=== PATIENT | female | born 1945 | race African-American/Black ===

== ENCOUNTER 2020-04-04 11:45 | Emergency (ER) | payer MEDICARE, OTHER ==
[~2020-04-04] VITALS: Ht 175.3 cm; Wt 100.0 kg
[~2020-04-04 11:45] MED LIST: IBUP-2070 PO
[2020-04-04 13:46] LABS: ANION GAP 11 mmol/L (8-16); CALCIUM, TOTAL 8.6 mg/dL (8.8-10.5); CARBON DIOXIDE 26 mmol/L (22-29); CHLORIDE 103 mmol/L (98-107); CREATININE 0.95 mg/dL (0.60-1.30); GLOMERULAR FILTR. RATE CALC > 60 mL/min (>60); GLUCOSE,RANDOM 120 mg/dL (70-110); POTASSIUM 3.6 mmol/L (3.5-5.1); SODIUM SERUM 140 mmol/L (136-145); UREA NITROGEN, BLOOD 9 mg/dL (7-18)
[2020-04-04 13:48] LABS: BASOPHILS % (AUTO) 0.5 % (0.0-2.0); EOSINOPHILS % (AUTO) 3.9 % (1.0-6.0); HEMATOCRIT 36.3 % (36-46); HEMOGLOBIN 12.2 g/dL (12.0-16.0); LYMPHOCYTES # (AUTO) 1.7 K/uL (1.0-4.8); LYMPHOCYTES % (AUTO) 23.4 % (22.0-44.0); MEAN CORPUSCULAR HGB CONC 33.6 G/dL (31.0-37.0); MEAN CORPUSCULAR VOLUME 95 fL (80-100); MONOCYTES # (AUTO) 0.6 K/uL (0.1-1.0); MONOCYTES % (AUTO) 8.6 % (2.0-9.0); NEUTROPHILS # (AUTO) 4.6 K/uL (1.8-7.7); NEUTROPHILS % (AUTO) 63.6 % (40.0-70.0); PLATELET COUNT (AUTO) 248 K/uL (150-450); RED BLOOD CELL COUNT(AUTO) 3.81 MIL/uL (4.00-5.20); RED CELL DISTRIBUTION WIDTH 14.7 % (11.5-14.5)
[2020-04-04 13:59] LABS: D-DIMER 0.43 mg/L FEU (0.00-0.50)
[2020-04-04 14:11] LABS: ALANINE AMINOTRANSFERASE 23 U/L (12-78); ALBUMIN 3.2 g/dL (3.4-5.0); ALKALINE PHOSPHATASE 87 U/L (46-116); ASPARTATE AMINOTRANSFERASE 16 U/L (15-37); BILIRUBIN,TOTAL 0.4 mg/dL (0.1-1.0); C-REACTIVE PROTEIN QUANT 1.18 mg/dL (0.00-0.30); CREATINE KINASE, TOTAL ONLY 123 U/L (26-192); FERRITIN 215 ng/mL (8-252); LACTATE DEHYDROGENASE 159 U/L (81-234); TOTAL PROTEIN, SERUM 6.8 g/dL (6.4-8.2)
[2020-04-04 14:14] LABS: LACTIC ACID 3.3 mmol/L (0.4-2.0)
[2020-04-04 14:16] LABS: B-TYPE NATRIURETIC PEPTIDE 65 pg/mL (0-100)
[2020-04-04 14:26] LABS: INFLUENZA TYPE A NEGATIVE FOR TYPE A (NEGATIVE); INFLUENZA TYPE B NEGATIVE FOR TYPE B (NEGATIVE)
[2020-04-04] MEDS ORDERED: SODIUM CHLORIDE 0.9% 1,000 ML IV ONE (14:30)
[2020-04-04 17:37] VITALS: BP 119/57
== END 2020-04-04 18:42 | disposition home or self-care (01) ==
LOC: EMS 11:45
DX: J40 Bronchitis, not specified as acute or chronic (principal); Z20.822 Contact with and (suspected) exposure to COVID-19
CPT/HCPCS: 36415; 71045; 80053; 82550; 82728; 83605; 83615; 83880; 84145; 84484; 85025; 85379; 85384; 85610; 85730; 86140; 87040; 87426; 87804; 93005; 96360; 96361; 99285; U0003

== ENCOUNTER 2022-01-02 13:18 | Emergency (ER) | payer MEDICARE, OTHER ==
[~2022-01-02] VITALS: Ht 162.6 cm; Wt 110.0 kg
[2022-01-02] MEDS ORDERED: ASPI-1444 PO (15:18)
[2022-01-02] MEDS ORDERED: GABA-529 PO (15:18)
[2022-01-02 15:22] VITALS: BP 137/69
[2022-01-02] MEDS ORDERED: NAPR-1197 PO (15:27)
[2022-01-02] MEDS ORDERED: ACET-66 PO (15:27)
[2022-01-02] MEDS ORDERED: SIMV10TA97 PO (15:27)
[2022-01-02] MEDS ORDERED: SODIUM CHLORIDE 0.9% 1,000 ML IV ONE (15:30)
[2022-01-02] MEDS ORDERED: LIDOCAINE 1% 10 ML VIAL PERC ONE (15:30)
[2022-01-02] MEDS ORDERED: IBUPROFEN 600 MG TABLET PO ONE (16:15)
[2022-01-02 16:31] LABS: BASOPHILS % (AUTO) 0.4 % (0.0-2.0); EOSINOPHILS % (AUTO) 2.6 % (1.0-6.0); HEMATOCRIT 39.8 % (36-46); LYMPHOCYTES # (AUTO) 1.8 K/uL (1.0-4.8); LYMPHOCYTES % (AUTO) 22.4 % (22.0-44.0); MEAN CORPUSCULAR HEMOGLOBIN 32.2 pg (26.0-34.0); MEAN CORPUSCULAR HGB CONC 32.7 G/dL (31.0-37.0); MEAN CORPUSCULAR VOLUME 99 fL (80-100); MONOCYTES # (AUTO) 0.7 K/uL (0.1-1.0); MONOCYTES % (AUTO) 8.9 % (2.0-9.0); NEUTROPHILS # (AUTO) 5.4 K/uL (1.8-7.7); NEUTROPHILS % (AUTO) 65.7 % (40.0-70.0); PLATELET COUNT (AUTO) 242 K/uL (150-450); RED BLOOD CELL COUNT(AUTO) 4.03 MIL/uL (4.00-5.20); RED CELL DISTRIBUTION WIDTH 13.5 % (11.5-14.5)
[2022-01-02 16:41] LABS: ANION GAP 10 mmol/L (8-16); CALCIUM, TOTAL 8.8 mg/dL (8.8-10.5); CARBON DIOXIDE 22 mmol/L (22-29); CHLORIDE 104 mmol/L (98-107); GLUCOSE,RANDOM 92 mg/dL (70-110); POTASSIUM 3.8 mmol/L (3.5-5.1); SODIUM SERUM 136 mmol/L (136-145); UREA NITROGEN, BLOOD 10 mg/dL (7-18)
[2022-01-02 16:43] LABS: GLOMERULAR FILTR. RATE CALC > 60 mL/min (>60)
[2022-01-02] MEDS ORDERED: CEPH-558 PO ×2 (16:59→17:30)
== END 2022-01-02 17:48 | disposition home or self-care (01) ==
LOC: EMS 13:21
DX: S62.626A Displaced fracture of middle phalanx of right little finger, initial encounter for closed fracture (principal); S61.216A Laceration without foreign body of right little finger without damage to nail, initial encounter; R55 Syncope and collapse; X58.XXXA Exposure to other specified factors, initial encounter; Y93.89 Activity, other specified; Y92.89 Other specified places as the place of occurrence of the external cause; Y99.8 Other external cause status
CPT/HCPCS: 99285; 96360; 80048; 85025; 36415; 73140; 93005; 12002; J3490; J7030

== ENCOUNTER 2025-01-16 14:08 | Emergency (ER) | payer MEDICARE, OTHER ==
[~2025-01-16] VITALS: Ht 165.1 cm; Wt 104.5 kg
[~2025-01-16 14:08] MED LIST changes: +ACET-66 PO; +ASPI-1444 PO; +CEPH-558 PO; +GABA-529 PO; -IBUP-2070 PO; +NAPR-1197 PO; +SIMV10TA97 PO
[2025-01-16 14:23] VITALS: TEMP 98.2
[2025-01-16 15:48] LABS: APPEARANCE,URINE CLEAR (CLEAR); GLUCOSE, URINE (UA) NEGATIVE (NEGATIVE); LEUKOCYTE ESTERASE ,URINE NEGATIVE (NEGATIVE); NITRATE,URINE NEGATIVE (NEGATIVE); OCCULT BLOOD,URINE NEGATIVE (NEGATIVE); SPECIFIC GRAVITIY, URINE 1.011 (1.003-1.030)
[2025-01-16] MEDS: LIDOCAINE 1% 10 ML VIAL ID ONE (16:01)
[2025-01-16] MEDS: PERTUSS(ACELL),DIPH,TET/PF 0.5 ML SYRINGE [ADULT] IM. ONE (16:03)
[2025-01-16] MEDS: POVIDONE-IODINE 10% 15 ML SOLUTION UD TP ONE (16:03)
[2025-01-16] MEDS: CEPHALEXIN MONOHYDRATE 500 MG CAPSULE PO ONE (16:03)
[2025-01-16] MEDS ORDERED: CEPH-558 PO (16:59)
[2025-01-16 17:18] VITALS: BP 113/69; PULSE 68; RESP 16; O2SAT 99
== END 2025-01-16 17:24 | disposition home or self-care (01) ==
LOC: EMS 14:08
DX: S90.852A Superficial foreign body, left foot, initial encounter (principal); E78.00 Pure hypercholesterolemia, unspecified; Z79.82 Long term (current) use of aspirin; Z79.899 Other long term (current) drug therapy; Z96.659 Presence of unspecified artificial knee joint; W27.3XXA Contact with needle (sewing), initial encounter; Y93.89 Activity, other specified; Y92.89 Other specified places as the place of occurrence of the external cause; Y99.8 Other external cause status
CPT/HCPCS: 99285; 10120; 81003; 73630; J3490; A4247; 90715; 99284